=== PATIENT | male | born 1975 | race Caucasian/White ===

== ENCOUNTER 2019-05-09 01:05 | Emergency (ER) | payer SELFPAY ==
[~2019-05-09] VITALS: Ht 177.8 cm; Wt 82.1 kg
[2019-05-09 01:08] VITALS: BP 127/83
--- NOTE | 2019-05-09 01:27 | NUR ---
WHEN THIS RN ENTERED ROOM TO SOPHIA PT. PT. WAS RESTING ON GURNEY WITH EYES CLOSED, EVEN, NON-LABORED RESPIRATIONS VISIBLE. PT. REPORTS HE IS HERE BECAUSE HE CAN'T SLEEP.
--- NOTE | 2019-05-09 01:51 | NUR ---
SEEN BY ERP WITH ORDER FOR DISCHARGE.
--- NOTE | 2019-05-09 01:52 | NUR ---
PATIENT DISCHARGED WITH INSTRUCTION. VERBALIZED UNDERSTANDING.
== END 2019-05-09 01:56 | disposition home or self-care (01) ==
LOC: ED 01:15
DX: G47.9 Sleep disorder, unspecified (principal); Z72.9 Problem related to lifestyle, unspecified
CPT/HCPCS: 99281